=== PATIENT | male | born 1985 | race Two or more races ===

== ENCOUNTER 2024-01-03 23:25 | Emergency (ER) | payer OTHER ==
[~2024-01-03] VITALS: Ht 175.3 cm; Wt 68.0 kg
[2024-01-04] MEDS ORDERED: PROMETHAZINE HCL 50 MG/ML AMPUL IM STA (00:50)
[2024-01-04] MEDS ORDERED: HYOSCYAMINE SULFATE 0.125 MG TAB.SUBL SL STA (00:50)
[2024-01-04] MEDS ORDERED: FAMOTIDINE/PF 20 MG/2 ML VIAL IV PUSH STA (00:51)
[2024-01-04] MEDS ORDERED: LACTOBACILLUS ACIDOPHILUS 1 CAP CAP PO STA (00:51)
[2024-01-04] MEDS ORDERED: 0.9 % SODIUM CHLORIDE 1,000 ML IV ONE (01:00)
[2024-01-04 01:54] LABS: HEMATOCRIT 41.1 % (39.0-48.0); MEAN CELL VOLUME 89.1 fL (80.0-100.00); MEAN CORPUSCULAR HEMOGLOBIN 30.4 pg (27.00-32.0); MEAN CORPUSCULAR HGB CONC 34.1 g/dl (32.0-36.0); PLATELET COUNT 277 K/uL (150-450); RED BLOOD COUNT 4.61 M/uL (4.00-6.00); RED CELL DISTRIBUTION WIDTH 13.4 % (11.5-14.5)
[2024-01-04 02:11] LABS: CREATININE SERUM 1.07 mg/dL (0.70-1.30); POTASSIUM 4.14 mEq/L (3.5-5.1)
[2024-01-04 02:43] LABS: GFR 77.76
[2024-01-04 04:07] LABS: PH,URINE 5.5 (5.0-8.0); URINE APPEARANCE Clear; URINE BILIRRUBIN Negative (NEGATIVE); URINE BLOOD Negative; URINE COLOR Yellow; URINE GLUCOSE Negative (NEGATIVE); URINE LEUKOCYTE Negative; URINE NITRATE Negative; URINE PROTEIN Trace (NEGATIVE)
[2024-01-04 04:11] LABS: URINE BACTERIA 80.6 uL (0.0-1933); URINE EPITHELIAL CELLS 8.4 uL (0.0-38.8); URINE WBC 8.4 uL (0.0-23.2)
[2024-01-04 04:36] LABS: URINE CRYSTALS MODERATE /HPF
[2024-01-04] MEDS ORDERED: METRONIDAZOLE/SODIUM CHLORIDE 500 MG/100 ML PIGGYBACK IV STA (05:04)
[2024-01-04] MEDS ORDERED: CIPROFLOXACIN IN 5 % DEXTROSE 400 MG/200 ML PIGGYBAG IV STA (05:04)
== END 2024-01-04 10:16 | disposition home or self-care (01) ==
LOC: ER 23:25
PROVIDERS: General Practice
DX: K52.89 Other specified noninfective gastroenteritis and colitis (principal); R10.9 Unspecified abdominal pain